=== PATIENT | female | born 2000 | race Caucasian/White ===

== ENCOUNTER 2019-09-29 13:49 | Emergency (ER) | payer OTHER, SELFPAY ==
[2019-09-29 13:50] VITALS: BP 126/71; PULSE 119; RESP 18; TEMP 37; O2SAT 96; BMI 22.1
--- NOTE | 2019-09-29 15:05 | ED.RN ---
pt states she is going to go to urgent care to be seen. [id number].
[2019-09-29 18:25] VITALS: TEMP -17.7; TEMP 0
== END 2019-09-29 18:27 | disposition left against medical advice (07) ==
PROVIDERS: Emergency Provider Emergency Medicine; Family Provider Nurse Practitioner Family; PCP Nurse Practitioner Family
DX: Z00.00 Encounter for general adult medical examination without abnormal findings (principal)
CPT/HCPCS: 87880